=== PATIENT | female | born 1940 | race Caucasian/White ===

== ENCOUNTER 2020-08-28 02:45 | Emergency (ER) | payer MEDICARE, OTHER ==
[2020-08-28] MEDS ORDERED: methylPREDNISolone Sod Succ/PF 125 MG/2 ML VIAL ONE (03:07)
[2020-08-28] MEDS ORDERED: Famotidine/PF 20 mg/2ml Vial ONE (03:07)
[2020-08-28] MEDS ORDERED: diphenhydrAMINE 50 MG/ML VIAL ONE (03:07)
[2020-08-28 03:12] LABS: Hemoglobin 12.9 g/dL (12.0-16.0); Mean Corpuscular HGB CONC 33.2 g/dL (32.0-36.0); Mean Corpuscular Hemoglobin 30.5 pg (27.0-31.0); Mean Corpuscular Volume 91.9 fL (78.0-98.0); Platelet Count 281 thou/uL (130-400); RBC Distribution Width 12.7 % (11.5-14.5); Red Blood Cell (RBC) Count 4.24 mill/uL (4.20-5.40); White Blood Cell (WBC) Count 9.1 thou/uL (4.8-10.8)
[2020-08-28 03:31] LABS: ALT (SGPT) 14 U/L (8-55); AST (SGOT) 16 U/L (5-34); Albumin 3.8 g/dL (3.4-4.8); Alkaline Phosphatase 48 U/L (40-110); Anion Gap 15 mmol/L (10-20); BUN (Urea Nitrogen) 32 mg/dL (9.8-20.1); Bilirubin, Total 0.3 mg/dL (0.2-1.2); Calc. Creatinine Clearance 0 mL/min (70-130); Carbon Dioxide 26 mmol/L (23-31); Chloride 102 mmol/L (98-107); Globulin 3.3 g/dL (2.4-3.5); Glucose 156 mg/dL (83-110); Potassium 4.3 mmol/L (3.5-5.1); Protein, Total 7.1 g/dL (5.8-8.1); Sodium 139 mmol/L (136-145)
[2020-08-28 03:49] LABS: Eosinophils 2 % (0-10); Lymphocytes 53 % (21-51); MDiff Complete? YES; Monocytes 11 % (0-10); Neutrophil 33 % (42-75); Platelet Morphology Comment Appears Adequate; Reactive Lymphocytes 1 % (0-10)
--- NOTE | 2020-08-28 08:11 | RAD ---
Portable frontal chest radiograph: 08/28/2020 COMPARISON: None available HISTORY: Shortness of breath, dyspnea FINDINGS: Lungs are clear. Heart and mediastinal contours appear within normal limits. IMPRESSION: No acute findings.
== END 2020-08-28 04:02 | disposition home or self-care (01) ==
LOC: ERS 02:45
DX: R06.02 Shortness of breath (principal); L29.9 Pruritus, unspecified; T39.315A Adverse effect of propionic acid derivatives, initial encounter
CPT/HCPCS: 71045; 80053; 83880; 84484; 85025; 93005; 94640; 96374; 96375; J1200; J2930; J7620; S0028